=== PATIENT | female | born 1965 | race Caucasian/White ===

== ENCOUNTER 2017-11-29 07:39 | Emergency (ER) | payer BC, OTHER ==
[2017-11-29] MEDS: KETOROLAC 60 MG INJ IM (10:58)
[2017-11-29 11:43] LABS: ADD UMIC NO; UR ASCORBIC ACID NEGATIVE (NEGATIVE); UR BILIRUBIN (Dip) NEGATIVE (NEGATIVE); UR BLOOD (Dip) NEGATIVE (NEGATIVE); UR CLARITY CLEAR (CLEAR); UR COLOR COLORLESS (YELLOW); UR GLUCOSE (Dip) NEGATIVE (NEGATIVE); UR KETONES (Dip) NEGATIVE (NEGATIVE); UR LEUKOCYTE ESTERASE (Dip) NEGATIVE Leu/ul (NEGATIVE); UR NITRITE (Dip) NEGATIVE (NEGATIVE); UR SPECIFIC GRAVITY (Dip) 1.003 (1.003-1.030); UR TOTAL PROTEIN (Dip) NEGATIVE (NEGATIVE); UR UROBILINOGEN (Dip) NEGATIVE (NEGATIVE)
== END 2017-11-29 12:07 | disposition home or self-care (01) ==
LOC: FTE 07:39
DX: M54.5 Low back pain (principal)
CPT/HCPCS: 81003; 96372; 99284-25

== ENCOUNTER 2018-08-10 15:04 | Emergency (ER) | payer BC ==
[2018-08-10] MEDS: KETOROLAC 30 MG INJ IM (16:57)
== END 2018-08-10 18:27 | disposition home or self-care (01) ==
LOC: FTE 18:27
DX: M25.561 Pain in right knee (principal)
CPT/HCPCS: 73562; 81025; 96372; 99284-25